=== PATIENT | male | born 1980 | race Two or more races ===

== ENCOUNTER 2021-05-06 14:56 | Emergency (ER) | payer SELFPAY ==
[~2021-05-06] VITALS: Ht 175.3 cm; Wt 84.1 kg
[2021-05-06 17:04] VITALS: BP 138/88
== END 2021-05-06 17:26 | disposition home or self-care (01) ==
LOC: EMS 14:56
DX: S29.012A Strain of muscle and tendon of back wall of thorax, initial encounter (principal); S80.01XA Contusion of right knee, initial encounter; V49.49XA Driver injured in collision with other motor vehicles in traffic accident, initial encounter; Y93.89 Activity, other specified; Y92.89 Other specified places as the place of occurrence of the external cause; Y99.8 Other external cause status
CPT/HCPCS: 72070; 99284; 73564-TC; Z7502